=== PATIENT | female | born 1970 | race Caucasian/White ===

== ENCOUNTER 2021-12-20 06:56 | Day surgery (SDC) | payer OTHER ==
[~2021-12-20 06:56] MED LIST: CODE1TAB37 PO; Colace 100MG PO; Mylicon 125MG PO
== END 2021-12-20 12:05 | disposition home or self-care (01) ==
LOC: AMB-ENDOS 06:56
PROVIDERS: ATTEND Colon & Rectal Surgery
DX: D12.5 Benign neoplasm of sigmoid colon (principal); K62.1 Rectal polyp